=== PATIENT | male | born 2000 | race Caucasian/White ===

== ENCOUNTER 2023-05-08 23:06 | Emergency (ER) | payer OTHER ==
[2023-05-08 23:15] VITALS: BP 130/88; O2SAT 97
[2023-05-09] MEDS ORDERED: CHERRY SYRUP 10 ML UDC PO ONE (00:18)
[2023-05-09] MEDS ORDERED: KETOROLAC 30 MG/ML VIAL IM STA (00:18)
[2023-05-09] MEDS ORDERED: DEXAMETHASONE 10 MG/ML VIAL PO STA (00:18)
--- NOTE | 2023-05-09 00:59 | ED Physician Documentation ---
PD HPI NECK PAIN - Stated complaint Stated Complaint: NECK PX - Chief complaint Chief Complaint: Back Pain - History obtained from History obtained from: Patient - History of Present Illness Timing - onset: Today Timing - duration: Hours Timing - details: Abrupt onset, Still present Location: Upper, Mid, Lower Quality: Pain, Spasm, Sharp, Similar to prior episodes Associated symptoms: No: Fever, Weakness, Numbness, Incontinent of urine, Unable to urinate, Hematuria, Incontinent of stool Improves with: Rest, Position Worsened by: Movement, Lifting, Twisting, Palpation Contributing factors: Other (lifting) Similar symptoms before: Diagnosis (neck spasm) Recently seen: Not recently seen - Additional information Additional information: 22-year-old Jeff Trejo has recently returned from deployment and he has been sleeping in his bed again. He has noticed over the last 2 weeks he has begin to get a stiff neck. Today he went to lift up a box weighing 60 to 80 pounds and felt a sudden pop in his neck. He has decreased range of motion and pain associated with this. He has had a stiff neck previously but he has never had a neck this stiff. Review of Systems Constitutional: denies: Fever Eyes: denies: Decreased vision Ears: denies: Ear pain Nose: denies: Congestion Throat: denies: Sore throat Cardiac: denies: Chest pain / pressure, Palpitations Respiratory: denies: Dyspnea, Cough GI: denies: Nausea, Vomiting, Constipation, Diarrhea : denies: Dysuria, Frequency PD PAST MEDICAL HISTORY - Past Medical History Past Medical History: No - Past Surgical History Past Surgical History: No - Present Medications Home Medications: Ambulatory Orders Medication Instructions Recorded Confirmed No Known Home Medications 05/08/23 05/08/23 - Allergies Allergies/Adverse Reactions: Allergies Allergy/AdvReac Type Severity Reaction Status Date / Time amoxicillin Allergy Emesis Verified 05/08/23 23:09 - Social History Does the pt smoke?: No Smoking Status: Never smoker Does the pt drink ETOH?: No Does the pt have substance abuse?: No - Immunizations Immunizations are current?: Yes PD ED PE NORMAL - Vitals Vital signs reviewed: Yes (hypertensive ) - General General: Alert and oriented X 3, No acute distress, Well developed/nourished - HEENT HEENT: Atraumatic, PERRL, EOMI - Neck Neck: No bony TTP, Other (mild point tenderness to the paraspinous muscles of the cervical spine. Reduced ROM ) - Cardiac Cardiac: RRR, No murmur - Respiratory Respiratory: No respiratory distress, Clear bilaterally - Abdomen Abdomen: Soft, Non tender - Back Back: No CVA TTP, No spinal TTP - Derm Derm: Normal color, Warm and dry, No rash - Extremities Extremities: No deformity, No edema - Neuro Neuro: Alert and oriented X 3, television tube inspector 2-12 intact, No motor deficit, No sensory deficit, Normal speech Eye Opening: Spontaneous Motor: Obeys Commands Verbal: Oriented GCS Score: 15 - Psych Psych: Normal mood, Normal affect Results - Vitals Vitals: Vital Signs - 24 hr 05/08/23 23:09 Temperature 37.1 C Heart Rate 69 Respiratory 16 Rate Blood Pressure 130/88 H O2 Saturation 97 Oxygen O2 Source Room air - Rads (name of study) CT neck Relevant Findings:: Prelim report reviewed (Impression: 1. No fracture or subluxation. Slight reversal of cervical lordosis centered at C5), EMP independent interpretation of test PD Medical Decision Making - ED course Complexity details: reviewed results, re-evaluated patient, considered differential, d/w patient, d/w family Reviewed Lab Results: We reviewed a CT scan of the patient's cervical spine which demonstrated a slight reversal of the cervical curvature consistent with the patient's clinical presentation of spastic torticollis. ED course: 30-year-old male with a very stiff neck is administered dexamethasone and Toradol on arrival to the emergency department a CT scan of his of the neck is obtained with symptoms occurring after heavy lifting. This did demonstrate reversal of the curvature consistent with spastic torticollis. We will place patient on a short course of pain medication muscle relaxant and expect resolution within the next 2 to 5 days Departure - Departure Disposition: 01 Home, Self Care Discharge Date/Time: 05/09/23 02:05
[2023-05-09] MEDS ORDERED: CYCLOBENZAPRINE 10 MG Prepack 2 PO ONE (01:51)
[2023-05-09] MEDS ORDERED: HYDROcod/ACET 5/325 Prepack 4 PO STA (01:51)
[2023-05-09] MEDS ORDERED: HYDROcod/ACET 5/325 Prepack 4 PO ONE (01:51)
[2023-05-09] MEDS ORDERED: CYCLOBENZAPRINE 10 MG Prepack 2 PO PRN (01:55)
--- NOTE | 2023-05-09 02:24 | CT Report ---
PROCEDURE: CERVICAL SPINE WO INDICATIONS: cant move the neck TECHNIQUE: Noncontrast 3 mm thick sections acquired from the skull base to the T4 level. Sagittal and coronal r eformats were then constructed. For radiation dose reduction, the following was used: automated exp osure control, adjustment of mA and/or kV according to patient size. COMPARISON: None. FINDINGS: Image quality: Excellent. Bones: No fractures or subluxation. There is slight reversal of the cervical lordosis at C5. Visuali zed superior ribs are intact. Soft tissues: Prevertebral soft tissues are normal in thickness. No paravertebral hematomas. No ap ical pneumothoraces. IMPRESSION: 1. No fracture or subluxation. 2. Slight reversal of the cervical lordosis centered at C5. Reviewed by: Amadou Saunders MD on 05/09/2023 1:28 AM PDT Approved by: Amadou Saunders MD on 05/09/2023 1:28 AM PDT Station ID: [id number]
== END 2023-05-09 02:05 | disposition home or self-care (01) ==
LOC: ED 23:06
DX: M43.6 Torticollis (principal)
CPT/HCPCS: 72125; 96374; 99284; A9270

== ENCOUNTER 2024-04-29 19:55 | Emergency (ER) | payer OTHER ==
[2024-04-29 20:08] VITALS: O2SAT 99
[2024-04-29 20:13] LABS: RAPID STREP SCREEN Negative (Negative)
--- NOTE | 2024-04-29 21:08 | ED Physician Documentation ---
PD HPI HEENT - Stated complaint Stated Complaint: THROAT PX - Chief complaint Chief Complaint: Heent - History obtained from History obtained from: Patient - Additional information Additional information: The patient comes to the emergency department chief complaint of sore throat for the last week. He states that he has had pharyngitis every month for the last 3 months and that this time seems to be the worst. He states his tonsils feel very swollen and that he has a sharp pain when he swallows. No difficulty breathing. He has been handling his secretions okay but just states that hurts to swallow. Symptoms seem fairly symmetrical on both sides. Patient denies any fevers or chills. He otherwise feels okay. No GI symptoms. No rhinorrhea or cough. He states that many of his family members have had their tonsils removed. No other complaints at this time. He states that he has not been diagnosed with anything specific on any of his other episodes of sore throat. PD PAST MEDICAL HISTORY - Past Medical History Past Medical History: No - Past Surgical History Past Surgical History: No - Present Medications Home Medications: Ambulatory Orders Medication Instructions Recorded Confirmed HYDROcod/ACETAM 5/325 [[place] 5/325] 1 - 2 tablet PO Q6H PRN #14 tablet 04/29/24 clindamycin HCL [Clindamycin HCl] 300 mg PO Q8HR #21 cap 04/29/24 predniSONE [Deltasone] 60 mg PO DAILY 5 Days #15 tablet 04/29/24 - Allergies Allergies/Adverse Reactions: Allergies Allergy/AdvReac Type Severity Reaction Status Date / Time amoxicillin Allergy Emesis Verified 04/29/24 19:59 - Social History Does the pt smoke?: No Smoking Status: Never smoker Does the pt drink ETOH?: No Does the pt have substance abuse?: No - Immunizations Immunizations are current?: Yes - POLST Patient has POLST: No PD ED PE NORMAL - Vitals Vital signs reviewed: Yes - General General: Alert and oriented X 3, No acute distress, Well developed/nourished - HEENT HEENT: Atraumatic, EOMI, Moist mucous membranes, Other (. 4+ tonsils with exudates bilaterally. Throat symmetrical. No palatal edema or distortion. No viral blistering. No drooling. The patient speaks with a normal voice.) - Neck Neck: Supple, no meningeal sign, No adenopathy (Moderate anterior cervical lymphadenopathy, symmetrical bilaterally) - Respiratory Respiratory: No respiratory distress - Derm Derm: Warm and dry - Extremities Extremities: No deformity - Neuro Neuro: Alert and oriented X 3 - Psych Psych: Normal mood, Normal affect Results - Vitals Vitals: Vital Signs - 24 hr 04/29/24 19:59 Temperature 36.5 C Heart Rate 88 Respiratory 16 Rate Blood Pressure 120/72 O2 Saturation 99 Oxygen O2 Source Room air - Labs Labs: Laboratory Tests 04/29/24 20:00 Group A Strep Rapid Negative PD Medical Decision Making - ED course Complexity details: reviewed results, re-evaluated patient, considered differential, d/w patient ED course: The patient strep test was negative. I added a monotest which is pending at this time given the recurrent pharyngitis with tonsillitis and lack of any other symptoms accompanying each time, I felt the patient likely had a bacterial process going on. He was started on clindamycin as he is allergic to penicillins. He was also given Toradol and Decadron here in the emergency department. I have prescribed clindamycin and a prednisone taper, as well as prn Vicodin. Departure - Departure Disposition: 01 Home, Self Care Clinical Impression: Tonsillitis Condition: Stable Instructions: ED Tonsillitis Prescriptions: clindamycin HCL [Clindamycin HCl] 300 mg PO Q8HR #21 cap predniSONE [Deltasone] 60 mg PO DAILY 5 Days #15 tablet HYDROcod/ACETAM 5/325 [[place] 5/325] 1 - 2 tablet PO Q6H PRN #14 tablet PRN Reason: Pain Comments: Your strep test is negative, but you do have evidence of tonsillitis on exam. We have tested you for mono also and this is pending at this time. You have had recurrent tonsillitis for the last 3 months without other symptoms to indicate a viral process and as such, Will treat with antibiotics. If you are having repeated episodes like this, it is probably good for you to follow-up with the ear nose throat specialist. [place]. You been given your first dose of antibiotics tonight, as well as your first dose of steroid and an anti-inflammatory. A prescription for the rest of your antibiotics, as well as for pain medicine and a short course of steroids, has been electronically transmitted to the [facility] pharmacy in [place] at your request. We are happy to give you time off work for this illness but you have requested that this not be done at this time. If you begin to feel like your illness is getting significantly worse, please stay home and get some rest for couple of days to help your body recuperate. Forms: PCP List
[2024-04-29] MEDS: CLINDAMYCIN 150 MG CAPSULE PO STA (21:14)
[2024-04-29] MEDS: DEXAMETHASONE 10 MG/ML VIAL IM STA (21:15)
[2024-04-29] MEDS: KETOROLAC 60 MG/2 ML VIAL IM STA (21:15)
[2024-04-29 21:22] LABS: INFECTIOUS MONONUCLEOSIS POSITIVE (Negative)
[2024-04-29 21:54] VITALS: BP 112/46
== END 2024-04-29 21:45 | disposition home or self-care (01) ==
LOC: ED 19:55
DX: J03.90 Acute tonsillitis, unspecified (principal)
CPT/HCPCS: 36415; 86308; 87070; 87077; 87430; 96372; 99283; A9270